=== PATIENT | female | born 1980 ===

== ENCOUNTER 2023-11-05 15:48 | Emergency (ER) | payer MEDICAID, OTHER, SELFPAY ==
--- NOTE | ~2023-11-05 | XR_ITS ---
EXAMINATION: XR CHEST CLINICAL INFORMATION: Pain COMPARISON: None available. TECHNIQUE: 2 views of the chest were obtained. FINDINGS: Lungs are well-inflated and clear. Trachea is midline in position. No interstitial disease, consolidation or mass. No pleural effusion or pneumothorax. Cardiac silhouette and pulmonary vessels are normal in size. The mediastinum and arjun have normal contour. The visualized bones and upper abdomen are unremarkable. XR/XR chest 2V IMPRESSION: Lungs have a normal appearance. No acute cardiopulmonary abnormality.
[2023-11-05 16:26] VITALS: BP 127/80; BP 140/79; PULSE 122; PULSE 128; RESP 20; TEMP 38.2; O2SAT 97; O2SAT 98; BMI 38.4
[2023-11-05 16:32] VITALS: BP 134/81; PULSE 122; PULSE 124; RESP 22; TEMP 38.2; O2SAT 97
--- NOTE | 2023-11-05 16:41 | ED.GENADULT ---
HPI - General Adult General Chief complaint: Upper Respiratory Symptoms Stated complaint: FEVER,COUGH,N/V,SOB Time Seen by Provider: 11/05/23 16:40 Source: patient, RN notes reviewed and old records reviewed Mode of arrival: ambulatory Limitations: no limitations History of Present Illness HPI narrative: 43-year-old female with past medical history significant for hypertension presents for evaluation of flu-like symptoms. patient reports fevers, body aches, cough, nausea, vomiting she reports that she has been sick since September 19 when she was diagnosed with COVID over a month ago patient states that she was also seen on October 16 for similar symptoms and was diagnosed with an asthma exacerbation. She reports she was discharged with cough medicine and prednisone she states that her symptoms never really improved patient denies any abdominal pain she is febrile on arrival to the ED that 100.8 and tachycardic to about 120 which is regular rhythm denies any leg swelling She takes lisinopril for high blood pressure but has not had any recent medication changes Related Data Previous Rx's Medication Instructions Recorded benzonatate 200 mg capsule 200 mg PO TID PRN cough #20 caps 11/05/23 Allergies Allergy/AdvReac Type Severity Reaction Status Date / Time No Known Allergies Allergy Verified 11/05/23 16:35 Review of Systems Constitutional: Constitutional: Reports body ache(s), Reports chills, Reports fever(s), Reports headache(s) and Reports malaise ENT: Reports headache(s) Cardiovascular: Cardiovascular: Reports dyspnea Respiratory: Respiratory: Reports cough and Reports dyspnea Gastrointestinal: Gastrointestinal: Denies abdominal pain, Reports nausea and Reports vomiting Musculoskeletal: Musculoskeletal: Reports back pain and Reports myalgias Integumentary/Breasts: Skin/Breast: Denies rash Neurologic: Reports headache(s) [facility] Social History Social History Smoked in Last 30 Days: No Use of substances other than those prescribed or required for medical reasons: No Advance Directives: No Advance Directives Information Provided: No Physical Exam ED Vital Signs: Vital Signs - 24 hr 11/05/23 16:26 11/05/23 16:32 11/05/23 16:32 Temperature 100.8 F H 100.8 F H Pulse Rate 128 H 122 H Respiratory Rate 20 22 H Blood Pressure 140/79 H 134/81 Pulse Oximetry 98 97 97 Oxygen Delivery Method Room Air Room Air Room Air BMI result Body Mass Index 38.4 Const General: healthy appearing, comfortable, no acute distress, alert and awake Nutritional Appearance: well nourished Orientation/consciousness: patient oriented x3 HENMT Head: Yes normocephalic and Yes atraumatic Eyes Eyelids: Yes eyelids normal Conjunctivae: conjunctivae normal Sclerae: sclerae normal Corneas: corneas normal Pupils: Equal, round and reactive pupils present EOM: EOMs intact bilaterally Neck Neck: Yes full ROM Resp Effort & Inspection: normal respiratory effort, able to speak in complete sentences, no audible wheezes and not labored Auscultation: clear to auscultation bilaterally Cardio Rate: tachycardic Rhythm: regular rhythm Skin General skin exam: elasticity normal Neuro General: patient oriented x3 Cranial nerves: Yes Equal, round and reactive pupils present and Yes Bilaterally intact EOM present Cognition (Neuro): normal cognition Extrem Other: Moving all extremities well without any obvious deformities Medications Administered Discontinued Medications Generic Name Dose Route Start Last Admin Trade Name Freq PRN Reason Stop Dose Admin Acetaminophen 975 mg 11/05/23 16:41 11/05/23 17:04 Acetaminophen 325 Mg Tablet PO 11/05/23 16:42 975 mg ONCE ONE Administration Sodium Chloride 1,000 mls @ 999 mls/hr 11/05/23 16:45 11/05/23 18:39 Ns IV 11/05/23 17:45 Infused .Q1H1M TASHI Infusion Ketorolac Tromethamine 30 mg 11/05/23 16:41 11/05/23 17:04 Ketorolac Tromethamine 30 Mg/Ml Vial IVPUSH 11/05/23 16:42 30 mg ONCE ONE Administration Medical Decision Making Medical Decision Making [facility] Narrative: 43-year-old female presents for evaluation of flu-like symptoms. Her symptoms may be related to influenza or COVID-19, however she reports being sick for over a month. Will get labs, blood cultures and a chest x-ray to rule out pneumonia. Patient will be given IV fluids, Tylenol and Toradol for fever and body aches. Further workup as indicated Differential Diagnosis Differential Diagnoses: The differential diagnosis associated with the presentation includes influenza influenza Sepsis Bronchitis Asthma exacerbation Lab Data 11/05/23 17:35 11/05/23 17:35 Labs: Lab Results 11/05/23 Range/Units 17:35 WBC 10.7 (4.8-10.8) X10*3/uL RBC 4.13 L (4.20-5.50) X10*6/uL Hgb 12.2 (12.0-16.0) g/dl Hct 36.4 L (37.0-47.0) % MCV 88.1 (80.0-98.0) fL MCH 29.5 (27.0-33.0) pg MCHC 33.5 (31.0-35.0) g/dl RDW 13.9 (11.0-16.0) % Plt Count 366 (160-400) X10*3/uL MPV 9.9 (9.4-12.3) fL Immature Gran % (Auto) 0.3 (0.0-0.4) % Neut % (Auto) 88.2 H (45-73) % Lymph % (Auto) 6.1 L (20-40) % Davidson % (Auto) 4.3 (2-11) % Eos % (Auto) 0.6 (0-4) % Baso % (Auto) 0.5 (0-2) % Lymph # (Auto) 0.7 L (1.2-4.9) X10*3/uL Davidson # (Auto) 0.5 (0.1-1.2) X10*3/uL Eos # (Auto) 0.1 (0.0-0.4) X10*3/uL Baso # (Auto) 0.1 (0.0-0.2) X10*3/uL Abs Immat Gran (auto) 0.03 (0.00-0.03) X10*3/uL Absolute Neuts (auto) 9.5 H (2.0-8.3) x10*3/uL Absolute Nucleated RBC 0.000 (0.0-0.012) X10*3/uL Nucleated RBC % (auto) 0.0 (0.0-0.2) /100WBC Sodium 140 (135-145) mmol/L Potassium 3.9 (3.3-5.1) mmol/L Chloride 108 (96-108) mmol/L Carbon Dioxide 23 (22-29) mmol/L Anion Gap 13 (12-20) BUN 10 (9-16) mg/dL Creatinine 0.81 (0.5-1.4) mg/dL Estim Creat Clear Calc 94.4 Estimated GFR > 60 Random Glucose 97 (60-115) mg/dL Lactic Acid 0.8 (0.5-2.0) mmol/L Calcium 8.9 (8.4-10.2) mg/dL Total Bilirubin 0.4 (0.0-1.0) mg/dL AST 15 (5-31) U/L ALT 13 (0-31) U/L Alkaline Phosphatase 101 (39-117) U/L Total Protein 7.1 (6.5-8.0) g/dL Albumin 4.0 (3.5-5.0) g/dL Lipase 17 (8-78) U/L COVID-19 ([place]) Negative (Negative) COVID-19 Clin Com See Note Influenza Type A ([place]) Positive A (Negative) Influenza Type B ([place]) Negative (Negative) Influenza A & B Note See Note Discharge Plan Discharge Clinical Impression: Acute dyspnea, Influenza Patient Disposition: Home, Self-Care Instructions: Influenza (ED) Additional Instructions: You tested positive for the flu Take Motrin/Tylenol for fevers and body aches Use Tessalon Perles as needed for coughing Follow-up with your primary doctor Prescriptions: New benzonatate 200 mg capsule 200 mg PO TID PRN (Reason: cough) Qty: 20 0RF Stand Alone Forms: Work/School Release
--- NOTE | 2023-11-05 16:42 | ECG_ITS ---
Test Reason : DIFFICULTY BREATHING Blood Pressure : / mmHG Vent. Rate : 112 BPM Atrial Rate : 112 BPM P-R Int : 152 ms QRS Dur : 080 ms QT Int : 328 ms P-R-T Axes : 046 015 022 degrees QTc Int : 447 ms Sinus tachycardia Otherwise normal ECG No previous ECGs available Referred By: Quinton Flores Electronically Signed By:PIO KAYE
[2023-11-05] MEDS: Ketorolac Tromethamine 30 MG/ML VIAL IVPUSH (17:04)
[2023-11-05] MEDS: Acetaminophen 325 MG TABLET 975 MG PO (17:04)
[2023-11-05] MEDS: 0.9 % Sodium Chloride 1,000 ML 999 ML IV (17:08)
[2023-11-05 18:01] LABS: MANUAL DIFF FLAG NO
[2023-11-05 18:05] LABS: COVID-19 Test Negative (Negative); IDNOW Serial# 08D9AD1C; IDNOW Serial# 152EDE1D; Influenza A Positive (Negative); Influenza B2 Negative (Negative)
[2023-11-05 18:08] LABS: Basophils Absolute Auto 0.1 X10*3/uL (0.0-0.2); Basophils Percent Auto 0.5 % (0-2); Eosinophils Absolute Auto 0.1 X10*3/uL (0.0-0.4); Eosinophils Percent Auto 0.6 % (0-4); Hematocrit 36.4 % (37.0-47.0); Hemoglobin 12.2 g/dl (12.0-16.0); Imm Gran Abs Auto 0.03 X10*3/uL (0.00-0.03); Imm Gran Pct Auto 0.3 % (0.0-0.4); Lymphocytes Absolute Auto 0.7 X10*3/uL (1.2-4.9); Lymphocytes Percent Auto 6.1 % (20-40); Mean Corpuscular HGB Conc 33.5 g/dl (31.0-35.0); Mean Corpuscular Hemoglobin 29.5 pg (27.0-33.0); Mean Corpuscular Volume 88.1 fL (80.0-98.0); Mean Platelet Volume 9.9 fL (9.4-12.3); Monocytes Absolute Auto 0.5 X10*3/uL (0.1-1.2); Monocytes Percent Auto 4.3 % (2-11); Neutrophils Absolute Auto 9.5 x10*3/uL (2.0-8.3); Neutrophils Percent Auto 88.2 % (45-73); Platelet Count 366 X10*3/uL (160-400); Red Blood Count 4.13 X10*6/uL (4.20-5.50); Red Cell Distribution Width 13.9 % (11.0-16.0); White Blood Count 10.7 X10*3/uL (4.8-10.8)
[2023-11-05 18:16] LABS: Lactic Acid 0.8 mmol/L (0.5-2.0)
[2023-11-05 18:21] LABS: Alanine Aminotransferase 13 U/L (0-31); Alkaline Phosphatase 101 U/L (39-117); Anion Gap 13 (12-20); Aspartate Amino Transferase 15 U/L (5-31); Bilirubin Total 0.4 mg/dL (0.0-1.0); Blood Urea Nitrogen 10 mg/dL (9-16); Calcium 8.9 mg/dL (8.4-10.2); Carbon Dioxide 23 mmol/L (22-29); Chloride 108 mmol/L (96-108); Creatinine Clr Calc Pharmacy 94.4; Estimated Glomerular Filt Rate > 60; Glucose Random 97 mg/dL (60-115); Lipase 17 U/L (8-78); Potassium 3.9 mmol/L (3.3-5.1); Sodium 140 mmol/L (135-145); Total Protein 7.1 g/dL (6.5-8.0)
[2023-11-05 18:44] VITALS: BP 127/79; PULSE 120; RESP 18; TEMP 38; O2SAT 97
== END 2023-11-05 18:55 | disposition home or self-care (01) ==
PROVIDERS: Physician Assistant; Emergency Provider Internal Medicine
DX: J10.1 Influenza due to other identified influenza virus with other respiratory manifestations (principal); R50.9 Fever, unspecified; R11.2 Nausea with vomiting, unspecified; R05.9 Cough, unspecified; R06.02 Shortness of breath; Z11.52 Encounter for screening for COVID-19; Z79.899 Other long term (current) drug therapy
CPT/HCPCS: 71046; 80053; 83605; 83690; 85025; 87040; 87502; 87635; 93005; 96361; 96374; 99284; 99285; J1885

== ENCOUNTER → 2023-11-05 16:42 | Outpatient (BNV) | payer MEDICAID, SELFPAY | PROVIDERS: Emergency Provider Internal Medicine; Visit Provider Internal Medicine | DX: R00.0 Tachycardia, unspecified (principal); R06.00 Dyspnea, unspecified | CPT/HCPCS: 93010 ==

== ENCOUNTER 2025-08-19 15:08 | Emergency (ER) | payer OTHER, SELFPAY ==
--- OUTSIDE RECORDS SUMMARY | 2024-12-11 06:00 | XMS_ITS ---
Author Organization [facility] Address [address] [place] [address] Care Team Providers Care Dispatcher Maintenance Service Name Role Phone MARIANELA LOMELI Unavailable [phone] REASON FOR VISIT Annual Exam Social History Sex Assigned At : Social History Observation Description Sex Assigned At Female Encounters Encounter Location Date Provider Diagnosis [facility] [address] [place] [address] [phone] 12/11/2024 MARIANELA LOMELI Plan Of Treatment No Information Progress Notes * Negar RAMOSDOB:1980 (45 yo F)Acc No.[id number]:12/11/2024 Progress Notes Patient: Negar Lan Provider: Ashutosh LOMELI :1980 A ge:44 Y S ex:Female Date:12/11/2024 Address:[address] [place] [address] NAOMI CRAWFORD [id number] Subjective: * Chief Complaints: * A nnual Exam * Electronic signature of SUNI LOMELI CNM on 08/20/2025 at 05:09 AM EST Sign off status: Pending * Provider: Ashutosh LOMELI Date: 0 12/11/2024 Generated for Carol veliz/Jatin/Stepan on: 1 10/20/2024 05:09 AM EST
--- NOTE | ~2025-08-19 | CT_ITS ---
CLINICAL HISTORY: LLQ tender, CT abdomen and pelvis with contrast Comparison: None provided Findings: The lung bases are clear. Elevated right hemidiaphragm. The gallbladder is unremarkable. No biliary ductal dilatation. The liver, spleen, pancreas, adrenal glands and kidneys are unremarkable. No ureteral stones and no hydronephrosis or hydroureter. No perinephric stranding. No bowel obstruction, pneumoperitoneum, or pneumatosis. Colonic diverticulosis with focal significant wall thickening and significant adjacent inflammatory stranding involving sigmoid colon proximally, consistent with acute diverticulitis. No perforation and no evidence of an abscess. No free fluid. Pelvic contents unremarkable. Normal appendix. Abdominal aorta normal in size. No acute fracture. IMPRESSION: 1. Acute diverticulitis involving sigmoid colon with no evidence of perforation or an abscess. After resolution of acute phase follow-up colonoscopies recommended to ensure no underlying mass. This document has been electronically signed by: Jacquelin Cherry MD on 08/19/2025 19:07:39
--- OUTSIDE RECORDS SUMMARY | 2025-08-19 14:00 | XMS_ITS | Encounter Summary ---
Author Organization [employer] Address [address] [place] [address] Care Team Providers Care Flavorings Compounder Name Role Phone Karen Schmidt MD Primary Care Provider [phone] Encounter Details Date Type Department Care Team ([facility] st Contact Info) Description 08/19/2025 2:00 PM EST Office Visit [facility] [address] [place] [address] [phone] Keisha Quintanilla MD [address] [place], [place] [phone] Acute abdominal pain (Primary Dx) Social History Tobacco Use Types Packs/Day Years Used Date Smoking Tobacco: Never Passive Smoke Exposure: Never Smokeless Tobacco: Never Alcohol Use Standard Drinks/Week Comments Never 0 (1 standard drink = 0.6 oz pur e alcohol) Depression Answer Date Recorded Patient Health Questionnaire-9 Score 9 12/25/2022 Depression Answer Date Recorded Patient Health Questionnaire-2 Score 3 12/25/2022 Comments Unknown Sex and Gender Information Value Date Recorded Sex Assigned at Female 11/21/2022 1:38 PM EST Legal Sex Female 1:34 PM EST Gender Identity Female 11/21/2022 1:38 PM EST Sexual Orientation Straight 11/21/2022 1: 38 PM EST documented as of this encounter Last Filed Vital Signs Vital Sign Reading Time Taken Comments Blood Pressure 149/92 08/19/2025 2:17 PM EST Pulse 106 08/19/2025 2:17 PM EST Temperature 34.6 C (94.2 F) 08/19/2025 2:17 PM EST Respiratory Rate 18 08/19/2025 2:17 PM EST Oxygen Saturation 96% 08/19/2025 2:17 PM EST Inhaled Oxygen Concentration - - Weight 85.5 kg (188 lb 9.6 oz) 08/19/2025 2:17 P M EST Height 157.5 cm (5' 2 ) 08/19/2025 2:17 PM EST Body Mass Index 34.5 08/19/2025 2:17 PM EST documented in this encounter Progress Notes * Keisha Logan MD - 08/19/2025 2:00 PM EST SUBJECTIVE: Negar Ramos is a 45 y.o. year old female who presents for acute visit . Negar Ramos, 45 years Acute Abdominal Pain and Suspected Diverticulitis - Severe abdominal pain onset yesterday morning, progressively worsening - Pain initially localized, then spread across the abdomen - Stomach swelling reported - Pain described as the worst ever experienced, unable to sleep, unable to walk straight - Pain occurs every 10 minutes, very strong - Pain not relieved by Advil - Denies fever, denies burning or pain with urination, denies constipation - Able to have a bowel movement today, but with abdominal pain and fear due to pain - Nausea and vomiting reported, dizziness present - History of diverticulitis, last episode 4 years ago, treated with antibiotics, hospitalization required - Fiber intake mentioned due to diverticulitis history Social History Social History Narrative Not on file Problem List[1] Family History[2] Review of Systems OBJECTIVE: Vitals: 08/19/25 1417 BP: (!) 149/92 BP Location: Right arm Patient Position: Sitting BP Cuff Size: Adult Pulse: 106 Resp: 18 Temp: 94.2 ??F (34.6 ??C) TempSrc: Temporal SpO2: 96% Weight: 188 lb 9.6 oz (85.5 kg) Height: 5' 2 (1.575 m) Physical Exam Constitutional: General: She is in acute distress. Cardiovascular: Rate and Rhythm: Normal rate and regular rhythm. Pulmonary: Effort: Pulmonary effort is normal. Breath sounds: Normal breath sounds. Abdominal: General: Bowel sounds are normal. There is distension. Tenderness: There is generalized abdominal tenderness. There is guarding. Neurological: Mental Status: She is alert. Follow Up: No follow-ups on file. Medications Ordered Prior to Encounter[3] Problem List Items Addressed This Visit Acute abdominal pain - Primary Acute abdominal pain and suspected diverticulitis: - Severe abdominal pain consistent with prior episodes of diverticulitis. Pain intensity and physical findings suggest a severe episode requiring higher level of care. Oral antibiotics not appropriate due to severity. - Referred to hospital for further evaluation and management. Recommendation for hospital-based care including CT imaging, intravenous pain management, intravenous antibiotics, and intravenous fluids. Presented case to hospital provider and coordinated transfer. Patient declines transportation by ambulance. This note was drafted using Ambient (AI) technology. The patient/patient's guardian has been informed and has consented to the use of this technology: Yes [1] Patient Active Problem List Diagnosis Nexplanon in place Essential hypertension Class 2 severe obesity due to excess calories with serious comorbidity and body mass index (BMI) of37.0 to 37.9 in adult Acute abdominal pain [2] No family history on file. [3] Current Outpatient Medications on File Prior to Visit Medication Sig Dispense Refill albuterol (Ventolin HFA) 108 (90 Base) MCG/ACT inhaler Inhale 2 puffs every 6 (six) hours if neededfor wheezing. 18 g 0 Blood Pressure kit Use as directed to check blood pressure twice a day 1 kit 0 losartan (Cozaar) 25 MG tablet Take 1 tablet (25 mg) by mouth Once per day. 30 tablet 11 [DISCONTINUED] acetaminophen (Tylenol Extra Strength) 500 MG tablet Take 1 tablet (500 mg) by mouthevery 6 (six) hours if needed for mild pain, fever, headaches or moderate pain. 30 tablet 0 [DISCONTINUED] hydrOXYzine pamoate (Vistaril) 50 MG capsule TAKE 1 CAPSULE BY MOUTH EVERY 6 HOURS NEEDED FOR ANXIETY 90 capsule 1 [DISCONTINUED] lisinopril (Prinivil) 20 MG tablet Take 1 tablet (20 mg) by mouth in the morning. 90tablet 1 [DISCONTINUED] predniSONE (Deltasone) 20 MG tablet 40 mg once a day x 5 days 10 tablet 0 [DISCONTINUED] sertraline (Zoloft) 50 MG tablet Take 1 tablet (50 mg) by mouth at bedtime. 90 tablet 1 [DISCONTINUED] sodium chloride ([place] Nasal [place]) 0.65 % nasal spray 1-2 sprays on each nostril every 2-3 hours as needed for nasal congestion 30 mL 1 [DISCONTINUED] Ventolin HFA 108 (90 Base) MCG/ACT inhaler INHALE 2 PUFFS BY MOUTH EVERY 6 HOURS NEEDED FOR WHEEZING 18 g 0 No current facility-administered medications on file prior to visit. documented in this encounter Plan of Treatment Upcoming Encounters Date Type Department Care Team (Late st Contact Info) Description 09/21/2025 9:15 AM EST Office Visit [facility] [address] [place] [address] Karen Schmidt MD [address] [place] [address] documented as of this encounter Visit Diagnoses Diagnosis Acute abdominal pain- Primary Abdominal pain, unspecified site documented in this encounter Additional Health Concerns Assessment Noted Time PHQ-9 Depression Total Score: 9 12/26/19 23 2:06 PM EDT documented as of this encounter Care Teams Flavorings Compounder Relationship Specialty Start Date End Date Karen Schmidt MD [address] [place] [phone] PCP - General Family Medicine 01/18/23 documented as of this encounter
[2025-08-19 15:19] VITALS: BP 132/75; PULSE 98; RESP 20; TEMP 36.9; O2SAT 99; BMI 34.6
--- NOTE | 2025-08-19 15:19 | ED_ITS ---
HPI - Abdominal Pain General Chief Complaint: Abdominal Pain Stated Complaint: Stomach Pain Time Seen by Provider: 08/19/25 17:16 History of Present Illness ED Provider: Juan Clark MD HPI narrative: Author / Clinician: Juan Clark MD Chief Complaint Severe abdominal pain and abdominal swelling since yesterday morning. History of Present Illness The patient is a female with a history of diverticulitis (last episode 2020) who presents to the ED for evaluation of severe abdominal pain that began yesterday morning. She initially thought the discomfort was related to her menstrual period, but the pain has since intensified and she now reports a sensation of abdominal swelling. She describes associated nausea but denies vomiting, diarrhea, hematochezia, dysuria, flank pain, or fevers. She reports the pain is severe and feels very swollen. The pain location was described as cheek and the root, though this was not clarified further in the conversation. No prior surgeries or complications related to diverticulitis. She underwent a colonoscopy shortly after her 2020 episode, which was reportedly normal. Past medical history is notable for hypertension, for which she started medication last . Review of Systems - Constitutional: No fevers reported. - Gastrointestinal: Positive for severe abdominal pain and nausea. Denies diarrhea or blood in stool. - Genitourinary: Denies dysuria or flank pain. Past Medical History - Diverticulitis (episode in 2020) - Hypertension (on medication started last week) Emergency Department Course Discussed plan with patient to obtain abdominal imaging (CT abdomen/pelvis) to evaluate for possible recurrent diverticulitis. Pain control requested by the patient; plan to administer pain medication. Patient verbalized understanding of the plan. Assessment & Plan Diagnosis: Abdominal pain, rule out recurrent diverticulitis. Plan: - CT abdomen/pelvis to assess for diverticulitis or other intra-abdominal pathology. - Pain management as requested by patient. Related Data Previous Rx's ?Medication ?Instructions ?Recorded benzonatate 200 mg capsule 200 mg PO TID PRN cough #20 caps 11/05/23 amoxicillin 875 mg-potassium 1 tab PO BID 7 days #14 t abs 08/19/25 clavulanate 125 mg tablet morphine 15 mg immediate release 15 mg PO BID PRN pain #7 tabs 08/19/25 tablet ondansetron 4 mg disintegrating 4 mg PO Q8H PRN nausea and 08/19/25 tablet vomiting #7 tabs Allergies Allergy/AdvReac Type Severity Reaction Status Date / Time No Known Allergies Allergy Verified 08/19/25 15:23 PENDING SALE TO [facility] Social History Social History Smoked in Last 30 Days: No Use of substances other than those prescribed or required for medical reasons: No Advance Directives: No Advance Directives Information Provided: No Patient : No Physical Exam ED Exam Exam: EXAM: Gen: Alert, awake, well appearing, well hydrated. Head: Atraumatic Eyes: Anicteric, Normal conjunctiva. ENT: Moist mucosa, no pallor. ? Neck: Supple. Skin: ?No observable rash or bruising on exposed or examined skin Respiratory: Breathing comfortably, No distress.Clear to auscultation bilaterally, symmetric chest expansion, No wheeze, rales, ronchi. Cardiovascular: Regular rate and rhythm. No murmurs or rub. Well perfused periphery, warm extremities. No edema. ? Abdominal: Moderate tenderness across the lower abdomen particularly in the left lower quadrant no masses. Soft, no objective distension. No palpable masses or obvious organomegaly. ?No guarding, no rebound tenderness or other peritoneal findings. : No flank tenderness. Neuro: Alert. Gross movement of all extremities intact. ? Psych: Calm. Cooperative. MSK: No grossly visible deformity. Vital signs: See flowsheet Vital Signs: Vital Signs - 24 hr 08/19/25 15:19 08/19/25 17:45 Temperature 98.5 F 98.3 F Pulse Rate 98 101 H Respiratory Rate 20 16 Blood Pressure 132/75 115/68 Pulse Oximetry 99 100 Oxygen Delivery Method Room Air Room Air BMI result Body Mass Index 34.6 Course Course Course Narrative: This is a Rapid Medical Exam performed in triage by Amy De Leon PA-C. Full HPI, ROS and PE to be performed by primary ED provider. 45-year-old female w/pmhx diverticulitis presenting to the ED c/o lower abdominal pain x yesterday AM. +nausea. denies D/C, fever, vaginal d/c or bleeding PE: uncomfortable, abdomen soft w/diffuse ttp, no rebound or guarding Plan: labs, UA Medical Decision Making Medical Decision Making MDM Narrative: Medical Decision Makin-year-old female with a history of diverticulitis with left lower quadrant lower no fever. No dysuria or flank pain or tenderness lower quadrant this is consistent with her previous episode of diverticulitis likely a recurrence we will get CT to evaluate for perforation abscess or other complication. Pain control IV fluids antibiotics Preliminary Favored Differential Diagnosis: [ ] among additional considered etiologies Testing Interpreted Independently: ?See below for details Radiology or Lab testing Results Reviewed: ?See below for details Consults: ?See below for details Independent Historians/External Chart Reviews: ?See below for details Social Determinants of Health Impacting MDM/Planning: ?See below for details Lab Data 08/19/25 16:37 08/19/25 16:37 Labs: Lab Results 08/19/25 08/19/25 08/19/25 Range/Units 16:37 17:28 17:44 WBC 19.5 H (4.8-10.8) X10*3/uL RBC 4.29 (4.20-5.50) X10*6/uL Hgb 12.9 (12.0-16.0) g/dl Hct 39.6 (37.0-47.0) % MCV 92.3 (80.0-98.0) fL MCH 30.1 (27.0-33.0) pg MCHC 32.6 (31.0-35.0) g/dl RDW 14.2 (11.0-16.0) % Plt Count 383 (160-400) X10*3/uL MPV 9.3 L (9.4-12.3) fL Immature Gran % (Auto) 0.6 H (0.0-0.4) % Neut % (Auto) 75.0 H (45-73) % Lymph % (Auto) 17.6 L (20-40) % Kemper % (Auto) 5.8 (2-11) % Eos % (Auto) 0.7 (0-4) % Baso % (Auto) 0.3 (0-2) % Lymph # (Auto) 3.4 (1.2-4.9) X10*3/uL Kemper # (Auto) 1.1 (0.1-1.2) X10*3/uL Eos # (Auto) 0.1 (0.0-0.4) X10*3/uL Baso # (Auto) 0.1 (0.0-0.2) X10*3/uL Abs Immat Gran (auto) 0.11 H (0.00-0.03) X10*3/uL Absolute Neuts (auto) 14.6 H (2.0-8.3) x10*3/uL Absolute Nucleated RBC 0.000 (0.0-0.012) X10*3/uL Nucleated RBC % (auto) 0.0 (0.0-0.2) /100WBC Sodium 139 (135-145) mmol/L Potassium 4.0 (3.3-5.1) mmol/L Chloride 106 (96-108) mmol/L Carbon Dioxide 26 (22-29) mmol/L Anion Gap 11 L (12-20) BUN 13 (9-16) mg/dL Creatinine 0.86 (0.5-1.4) mg/dL Estim Creat Clear Calc 82.1 Estimated GFR > 60 Random Glucose 105 (60-115) mg/dL Lactic Acid 0.7 (0.5-2.0) mmol/L Calcium 9.1 (8.4-10.2) mg/dL Magnesium 2.3 (1.6-2.6) mg/dL Total Bilirubin 0.6 (0.0-1.0) mg/dL Direct Bilirubin 0.2 (0.0-0.5) mg/dL AST 19 (5-31) U/L ALT 14 (0-31) U/L Alkaline Phosphatase 115 (39-117) U/L Total Protein 7.1 (6.5-8.0) g/dL Albumin 4.2 (3.5-5.0) g/dL Lipase 22 (8-78) U/L Beta HCG, Quant < 2 mIU/mL Urine Color Yellow Urine Appearance Hazy Urine pH 6.5 (5.0-9.0) Ur Specific [place] 1.015 (1.005-1.025) Urine Protein 30 (1+) H (Neg-Trace) mg/dL Urine Glucose (UA) Negative (Negative) mg/dL Urine Ketones 15 (Negative) mg/dL Urine Blood Large (3+) H (Negative) Urine Nitrite Negative (Negative) Ur Leukocyte Esterase Trace H (Negative) Urine RBC >20 H (0-2) /HPF Urine WBC 11-20 H (0-5) /HPF Ur Squamous Epith Cells 6-10 (0-2) /HPF Urine Bacteria 1+ (None Seen) Hyaline Casts 0-2 (0-2) /LPF Medications Administered Discontinued Medications Generic Name Dose Route Start Last Admin Trade Name Aretha PRINCE Reason Stop Dose Admin Acetaminophen 975 mg 08/19/25 19:12 08/19/25 19:24 Acetaminophen 325 Mg Tablet PO 08/19/25 19:13 975 mg ONCE ONE Administration Ceftriaxone Sodium 2 gm/ 50 mls @ 100 mls/hr 08/19/25 18:07 08/19/25 19:16 Sodium Chloride IV 08/19/25 18:36 Infused ONCE ONE Infusion Metronidazole 500 mg in 100 mls @ 100 mls/hr 08/19/25 18:07 08/19/25 19:16 Flagyl IV 08/19/25 19:06 Not Given ONCE ONE Sodium Chloride 1,000 mls @ 999 mls/hr 08/19/25 18:15 08/19/25 19:41 Ns IV 08/19/25 19:15 Infused .Q1H1M TASHI Infusion Iohexol 100 ml 08/19/25 18:31 08/19/25 18:31 Iohexol 350 Mg/Ml 100 Ml Infus..Btl IV 08/19/25 18:32 85 ml ONCE ONE Administration Morphine Sulfate 15 mg 08/19/25 19:12 08/19/25 19:24 Morphine Sulfate Immed Release 15 Mg Tablet PO 08/19/25 19:13 15 mg ONCE ONE Administration Discharge Plan Discharge Clinical Impression: Diverticulitis Patient Disposition: Home, Self-Care Instructions: Diverticulitis (DC) Additional Instructions: _ DISCHARGE DIAGNOSES: Abdominal pain identified as diverticulitis without complication on CT scan HISTORY OF PRESENTATION: ?Abdominal pain EMERGENCY DEPARTMENT COURSE,TESTS, TREATMENTS: While in the ED today you had a CT scan showing diverticulitis without complication we given intravenous antibiotics DISCHARGE MEDICATIONS: ?[We have made no changes to your regular medication regimen] we are sending you home on oral antibiotics please take as prescribed FOLLOW-UP: ?Call your primary or general physician soon as possible to discuss your symptoms, your ED visit and to discuss follow up plans Call your primary doctor to be seen within 2-3 days INSTRUCTIONS ?& RETURN PRECAUTIONS: If any symptoms change first call your primary physician, if it is after-hours your primary doctors office should have a provider extension service agent you can speak with. If the symptoms are severe or very concerning to you then call 911 or return to the ED. Return for severe worsening pain rectal bleeding or other significant complications or symptoms as we discussed Juan Clark MD Emergency Physician [facility] Prescriptions: New morphine 15 mg tablet 15 mg PO BID PRN (Reason: pain) Qty: 7 0RF Rx Instructions: Partial Fill upon patient request. amoxicillin-pot clavulanate 875-125 mg tablet 1 tab PO BID 7 Days Qty: 14 0RF ondansetron 4 mg tablet,disintegrating 4 mg PO Q8H PRN (Reason: nausea and vomiting) Qty: 7 0RF No Action benzonatate 200 mg capsule 200 mg PO TID PRN (Reason: cough) Qty: 20 0RF Stand Alone Forms: Work/School Release Interventions: ED Discharge Assessment Last Done: 08/19/25 19:28 Discharge Date/Time: 08/19/25 19:41 Print Language: Portuguese
[2025-08-19 16:49] LABS: MANUAL DIFF FLAG NO
[2025-08-19 16:52] LABS: Hematocrit 39.6 % (37.0-47.0); Hemoglobin 12.9 g/dl (12.0-16.0); Imm Gran Abs Auto 0.11 X10*3/uL (0.00-0.03); Imm Gran Pct Auto 0.6 % (0.0-0.4); Lymphocytes Absolute Auto 3.4 X10*3/uL (1.2-4.9); Mean Corpuscular HGB Conc 32.6 g/dl (31.0-35.0); Mean Corpuscular Hemoglobin 30.1 pg (27.0-33.0); Mean Corpuscular Volume 92.3 fL (80.0-98.0); NRBC Abs Auto 0.000 X10*3/uL (0.0-0.012); NRBC Pct Auto 0.0 /100WBC (0.0-0.2); Platelet Count 383 X10*3/uL (160-400); Red Blood Count 4.29 X10*6/uL (4.20-5.50); White Blood Count 19.5 X10*3/uL (4.8-10.8)
[2025-08-19 17:16] LABS: Alanine Aminotransferase 14 U/L (0-31); Albumin Level 4.2 g/dL (3.5-5.0); Alkaline Phosphatase 115 U/L (39-117); Anion Gap 11 (12-20); Aspartate Amino Transferase 19 U/L (5-31); Blood Urea Nitrogen 13 mg/dL (9-16); Calcium 9.1 mg/dL (8.4-10.2); Carbon Dioxide 26 mmol/L (22-29); Chloride 106 mmol/L (96-108); Creatinine Clr Calc Pharmacy 82.1; Estimated Glomerular Filt Rate > 60; Lipase 22 U/L (8-78); Magnesium 2.3 mg/dL (1.6-2.6); Potassium 4.0 mmol/L (3.3-5.1); Sodium 139 mmol/L (135-145); Total Protein 7.1 g/dL (6.5-8.0)
[2025-08-19 17:45] VITALS: BP 115/68; PULSE 101; RESP 16; TEMP 36.8; O2SAT 100
[2025-08-19 18:13] LABS: Appearance Urine Hazy; Glucose Urine UA Negative (Negative); PH 6.5 (5.0-9.0); Specific Gravity - Urine 1.015 (1.005-1.025); UMIC TRIGGER UACC YES
[2025-08-19 18:16] LABS: UACC Culture Trigger YES
--- NOTE | 2025-08-19 18:24 | PC.NURSE ---
Pt out of room for CT scan
[2025-08-19] MEDS: iohexoL 350 MG/ML 100 ML INFUS..BTL IV (18:31)
[2025-08-19 19:15] VITALS: BP 129/82; PULSE 101; RESP 18; O2SAT 98
--- NOTE | 2025-08-19 19:16 | PC.NURSE ---
provider Dr Barakat confirms cancel Flagyl. Pt being d/c.
[2025-08-19] MEDS: Morphine Sulfate Immed Release 15 MG TABLET PO (19:24)
[2025-08-19 19:28] VITALS: BP 129/82; PULSE 101; RESP 18; TEMP 36.8; O2SAT 98
--- NOTE | 2025-08-19 19:28 | PC.NURSE ---
pt medicated per MAR, IV removed, d/c paper given.
--- OUTSIDE RECORDS SUMMARY | 2025-08-20 05:09 | XMS_ITS | Encounter Summary ---
Author Organization [employer] Address [address] [facility] [place] [address] Care Team Providers Care Tank Worker Name Role Phone Karen Schmidt MD Primary Care Provider Reason for Visit * Reason Onset Date Comments Nurse Triage 11/05/2023 Encounter Details Date Type Department Care Team ([facility] st Contact Info) Description 11/05/2023 Telephone [facility] [address] [place] [address] Karen Schmidt MD [address] [place] [address] Nurse Triage Social History Tobacco Use Types Packs/Day Years [...] PM EST documented as of this encounter Miscellaneous Notes * Telephone Encounter - Humaira Mata RN - 11/05/2023 12:01 PM EST Triage call Pt reports chronic cough at this point and body aches. Pt was seen in [facility] 10/16/23 with dx of cough variant asthma. Prednisone was prescribed at that time which Pt reports helped tremendously. Pt was prescribed an albuterol MDI which Pt is using twice daily. Pt denies fever but, audibly is coughing during this call with some audible wheezing. Pt has used prescribed benzonatate 200mg caps with some effect and only has 2 capsules left. Pt reports , I feel much worse . Pt has some shortness of breath. [place] [facility] [place]. Insurance is verified as active prior to booking. Pt agrees with disposition and home care reviewed. Protocol Used: Cough (Adult) Protocol-Based Disposition: See in Office or Video Visit Today or Tomorrow Video visit not offered Positive Triage Questions: * Continuous (nonstop) coughing interferes with work or school and no improvement using cough treatment per Care Advice * Patient wants to be seen * All higher-acuity triage questions were negative Care Advice Discussed: * Reassurance and Education - Cough * Cough Medicines * Coughing Spells * Prevent Dehydration * Reasons To Call Back - Difficulty breathing - Cough lasts more than 3 weeks - Fever lasts more than 3 days - You become worse * Telephone Encounter - Jada Mac - 11/05/2023 11:25 AM EST Symptoms: Cough, Body Aches Outcome: Schedule an urgent appointment (within 1 hour) or talk to a nurse or provider soon Reason: Wheezing (high-pitched whistling sound) The caller accepted this outcome documented in this encounter Plan of Treatment Upcoming Encounters Date Type Department Care Team (Late st Contact Info) Description 09/21/2025 9:15 AM EST Office Visit [facility] [address] [place] [address] Karen Schmidt MD [address] [place] [address] documented as of this encounter Visit Diagnoses Not on filedocumented in this encounter Additional Health Concerns Assessment Noted Time PHQ-9 Depression Total Score: 9 12/26/19 23 2:06 PM EDT documented as of this encounter Care Teams Tank Worker Relationship Specialty Start Date End Date Karen Schmidt MD [address] [place] [address] PCP - General Family Medicine 01/18/23 documented as of this encounter
--- OUTSIDE RECORDS SUMMARY | 2025-08-20 05:09 | XMS_ITS | Patient Health Record ---
Author Organization [facility] [employer] Address [address] [place] [address] Care Team Providers Care Brand Coordinator Name Role Phone MARIANELA LOMELI Unavailable [phone] Allergies No Known Allergies Results Component Value Reference Range Notes PDF Report Reviewed date:01/05/2025 12:01:13 PM Interpretation: Performing Lab:[facility] [place], [address], [address], [place], Phone - [phone], Director - [facility] Notes/Report: No. of containers..01 ThinPrep Vial Clinical Information:[id number] IGP, Apt HPV,rfx 16/18,45-19 9344 Reviewed date:01/05/2025 12:00:48 PM Interpretation:Normal, HPV negative Performing Lab:[facility] [place], [address], [address], [place], Phone - [phone], Director - [facility] Notes/Report: Clinical Information:[id number] No. of containers..01 ThinPrep Vial DIAGNOSIS: NEGATIVE FOR IN TRAEPITHELIAL LESION OR MALIGNANCY. Specimen adequacy: Satisfactory for evaluation. Endocervical and/or squamous metaplastic cells (endocervical component) are present. Clinician provided ICD10: Z01.419 Z11.51 Performed by: Quinton Lynn , Care Tech (ASCP) . . Note: The Pap smear is a screening test designed to aid in the detection of premalignant and malignant conditions of the uterine cervix. It is not a diagnostic procedure and should not be used as the sole means of detecting cervical cancer. Both false-positive and false-negative reports do occur. . Test Methodology: This liquid based ThinPrep(R) pap test was screened with the use of an image guided system. HPV Aptima Negative Negative This nucleic acid amplification test detects fourteen high-risk HPV types (16,18,31,33,35,39,45,51,52,56,58 ,59,66,68) without differentiation. Chlamydia/GC Amplification-1 10143 Reviewed date:01/05/2025 11:47:24 AM Interpretation:Negative Performing Lab:[facility] [place], [address], [address], [place], Phone - [phone], Director - [facility] Notes/Report: Chlamydia trachomatis, GLORIA Negative Negative Neisseria gonorrhoeae, GLORIA Negative Negative Reason For Referral No Information Medications Medication SIG (Take, Route, Frequency, Duration) Notes Start Date End Date Status Nexplanon Active Social History Sex Assigned At : Social History Observation Description Sex Assigned At Female Social History HIV Risk Assessment Social Info Question Answer Notes Additional Questions Is an HIV Risk Assessment being conducted? No Aware of costs Reproductive Life Plan: Social Info Question Answer Notes Reproductive Life Plan: Do you want to h manuel children? No Human Trafficking: Social Info Question Answer Notes Human Trafficking Experienced: No PrEP for HIV: Social Info Question Answer Notes PrEP for HIV Is the client interested in beginning/continuing PrEP for HIV? No Sexual History: Social Info Question Answer Notes Sexual History: Sexual History Reviewed: Partners, Practices, Protection/Past STIs, Prevention of Currently sexually active? Yes Sexually active with: Men Number of male partners 1 Your sexual activities include: vaginal intercourse Reviewed types of EC? Yes Have you/your partner(s) ever used EC? Yes Do you use condoms? No Date of last unprotected intercourse: 12/12/2024 Number of partners in past 3 months: 1 Number of partners in past year: 1 What is the client's primary method to prevent at the end of their visit? Hormone Implant (Nexplanon) Does your partner(s) currently have any STIs? No Counseling Provided: Social Info Question Answer Notes Counseling Provided Please indicate the length of time, in minutes, that counseling was provided. 10 Counseling Was Provided By: connor Drugs/Alcohol: Social Info Question Answer Notes Drug/Alcohol Use Do you or have you used drugs? No Per client Do you or have you used alcohol? Yes, in the pas t Per client Food Access: Social Info Question Answer Notes Food Access The Client's current access to food is Secure Food Access Relationships: Social Info Question Answer Notes Relationships Has the client experienced any of the following: Client has never experienced harmful relationships DO NOT USE - Travel Plans: Social Info Question Answer Notes Travel Plans DO NOT USE - Has cli ent traveled to any Zika affected areas? No DO NOT USE - Has partner traveled to any Zika af fected areas? No DO NOT USE - Is client planning to travel to any Zika affected areas? No DO NOT USE - Is partner planning to travel to an y Zika affected areas? No Housing Social Info Question Answer Notes Housing The client's current living situation is: stable housing Tobacco Use: Social Info Question Answer Notes Tobacco Use: Do you/have you used tobacco? No Tobacco Smoking Status Unknown if ever smoked Section Notes: Aptima Problems Problem Type SNOMED Code ICD Code Onset Dates Problem Status W/U Status Risk Notes Problem SI - Stress incontinence (68161964) Stress incontinence (female) (male) (N39.3) Active confirmed Vital Signs Blood pressure diastolic 84 mm Hg 12/31/2024 Cli ent was please with bp as it sometimes is high Height 5'2 in 12/31/2024 Client was plea se with bp as it sometimes is high Blood pressure systolic 136 mm Hg 12/31/2024 Clie nt was please with bp as it sometimes is high Weight 203.0 lbs 12/31/2024 Client was plea se with bp as it sometimes is high BMI 37.13 kg/m2 12/31/2024 Client was plea se with bp as it sometimes is high Encounters Encounter Location Date Provider Diagnosis [address] [id number] 12/31/2024 MARIANELA LOMELI Encounter for gynecological examination (general) (routine) without abnormal findings Z01.419 ; Encounter for screening for human papillomavirus (HPV) Z11.51 ; Chlamydia Screening Z11.3 ; Other problems related to lifestyle Z72.89 and Stress incontinence (female) (male) N39.3 Assessments Encounter Date Diagnosis (ICD Code) Assessment Notes Treatment Notes Treatment Clinical Notes Section Notes 12/31/2024 Encounter for gynecological examination (general) (routine) without abnormal findings (ICD-10 - Z01.419) Discussed routine screenings and self breast/chest awareness. Mammogram screening recommendations reviewed. Provided clt with mammogram referral to self schedule once insurance is reinstated. Pap guidelines reviewed and pap collected. Routine screening in 5 yrs if normal. Perimenopause/juanita pause anticipatory guidance reviewed- clt is experiencing symptoms that are suggestive of perimenopause. Reviewed options regarding current bleeding pattern and perimenopause symptoms. Can consider replacing Nexplanon or change to a different BCM. Also discussed CHC's if BP normal and/or progestin method and use of an estradiol patch. Clt to think about options and book a follow up if she would like 12/31/2024 Encounter for screening for human papillomavirus (HPV) (ICD-10 - Z11.51) 12/31/2024 Chlamydia Screening (ICD-10 - Z11.3) Discussed STI risks, screenings that are available through [facility] and safe sex. Clt aware of lab processing times and how to view results on portal and how positive results will be communicated 12/31/2024 Other problems related to lifestyle (ICD-10 - Z72.89) 12/31/2024 Stress incontinence (female) (male) (ICD-10 - N39.3) Pelvic floor exercises discussed and recommended. If clt not getting enough benefit from this then can do pelvic PT referral once insurance reinstated Plan Of Treatment No Information Insurance Providers Payer Name Payer Address Payer Phone Subscriber Number Group Number Insured Name Patient Relationship to Insured Coverage Start Date Coverage End Date [facility] - [id number] [address] [place] [address] [place] Fee Cat 5 Negar Ramos Self - patient is the insured Medications Administered Medication Instructions Date of Administration Dosage Notes Lidocaine 1% 11/29/2020 Medical (General) History Medical History History ICD Code abnormal Pap weight concerns possible HTN, has not been diagnosed Sexually transmitted infections PORTER's- no aura. Maybe related to eye strain. Improved with wearing eye glasses Surgical History Surgery Date(Month/Year) 2x abortions cyst removed from wrist 2017 Hospitalization History Reason Date(Month/Year) child
--- OUTSIDE RECORDS SUMMARY | 2025-08-20 05:09 | XMS_ITS | Encounter Summary ---
Author Organization [employer] Address [address] [place] [address] [address] [place] [address] Care Team Providers Care Passport Application Examiner Name Role Phone Karen Schmidt MD Primary Care Provider [phone] Encounter Details Date Type Department Care Team (Latest Contact Info) Description 08/19/2025 Travel Social History Tobacco Use Types Packs/Day Years [...] PM EST documented as of this encounter Plan of Treatment Upcoming Encounters Date Type Department Care Team (Late st Contact Info) Description 09/21/2025 9:15 AM EST Office Visit [facility] [address] [place] [address] Karen Schmidt MD [address] [place] [address] documented as of this encounter Visit Diagnoses Not on filedocumented in this encounter Additional Health Concerns Assessment Noted Time PHQ-9 Depression Total Score: 9 12/26/19 23 2:06 PM EDT documented as of this encounter Care Teams Passport Application Examiner Relationship Specialty Start Date End Date Karen Schmidt MD [address] [place] [address] PCP - General Family Medicine 01/18/23 documented as of this encounter
--- OUTSIDE RECORDS SUMMARY | 2025-08-20 05:09 | XMS_ITS | Encounter Summary ---
Author Organization [employer] Address [address] [facility] 7 [place] [address] Care Team Providers Care Wound Care Rn Name Role Phone Karen Schmidt MD Primary Care Provider [phone] Reason for Visit * Reason Onset Date Comments Nurse Triage 08/19/2025 Encounter Details Date Type Department Care Team ([facility] st Contact Info) Description 08/19/[address] [facility] [address] [place] [address] Karen Schmidt MD [address] [place] [address] Nurse Triage Social History Tobacco Use Types [...] encounter Miscellaneous Notes * Telephone Encounter - Barrett Ho RN - 08/19/2025 10:57 AM EST TC placed to patient. Patient reported moderate to severe lower abd pain with nausea, dizziness. headaches x 2 days. HX of Diverticulitis. Patient reported taking Advil for the pain and it will work for a little while then the pain returns. RN scheduled an appt in the [facility] 08/19/25 at 2 pm with a provider. RN advised if patient symptoms worsen prior to her appt at 2 pm to go to the ED for further evaluation. patient verbalized understanding. Protocol Used: Abdominal Pain - Female (Adult) Protocol-Based Disposition: See in Office or Video Visit Today Video visit not offered Positive Triage Questions: * Moderate pain (e.g., interferes with normal activities that comes and goes (cramps) lasts > 24hours (Exception: Pain with diarrhea or vomiting; see Diarrhea or Vomiting Protocol.) * Patient wants to be seen * All higher-acuity triage questions were negative. Care Advice Discussed: * Rest * Expected Course - Abdomen Pain * Reasons To Call Back - Severe pain lasts over 1 hour - Constant pain lasts over 2 hours - You become worse * Telephone Encounter - Santa Leroy - 08/19/2025 10:07 AM EST Symptom: Abdominal Pain - Female - Not Outcome: Schedule an urgent appointment (within 4 hours) or talk to a nurse or provider soon Reason: Getting worse The caller accepted this outcome. Contact pt at [phone] documented in this encounter Plan of Treatment Upcoming Encounters Date Type Department Care Team (Late st Contact Info) Description 09/21/2025 9:15 AM EST Office Visit [facility] [address] [place] [address] Karen Schmidt MD [address] [place] [address] documented as of this encounter Visit Diagnoses Not on filedocumented in this encounter Additional Health Concerns Assessment Noted Time PHQ-9 Depression Total Score: 9 12/26/19 23 2:06 PM EDT documented as of this encounter Care Teams Wound Care Rn Relationship Specialty Start Date End Date Karen Schmidt MD [address] [place] [address] PCP - General Family Medicine 01/18/23 documented as of this encounter
--- OUTSIDE RECORDS SUMMARY | 2025-08-20 05:09 | XMS_ITS | Clinical Summary ---
Author Organization [employer] Address [address] [facility] 7t [place] [address] Care Team Providers Care Imaging Account Manager Name Role Phone Karen Schmidt MD Primary Care Provider Allergies Active Allergy Reactions Criticality Noted Date Comments Lisinopril Cough High 08/13/2025 Medications * This document contains information received from the source organization and may not represent a complete record from that organization. Blood Pressure kitIndications: Elevated BP without diagnosis of hypertension Use as directed to check blood pressure twice a day 1 kit 11/21/19 Active losartan (Cozaar) 25 MG tabletIndicatio ns:Essential hypertension Take 1 tablet (25 mg) by mouth Once per day. 30 tablet 11 5 3:37 PM EST 08/13/20 25 026 Active albuterol (Ventolin HFA) 108 (90 Base) MCG/ACT inhalerIndicati ons:Mild intermittent reactive airway disease without complication Inhale 2 puffs every 6 (six) hours if needed for wheezing. 18 g 5 3:37 PM EST 08/13/20 25 Active sodium chloride (Victoria Nasal [place]) 0.65 % nasal sprayIndication s:Viral syndrome 1-2 sprays on each nostril every 2-3 hours as needed for nasal congestion 30 mL 1 11/21/19 23 025 Discontinued(T herapy completed) acetaminophen (Tylenol Extra Strength) 500 MG tabletIndicatio ns:Viral syndrome Take 1 tablet (500 mg) by mouth every 6 (six) hours if needed for mild pain, fever, headaches or moderate pain. 30 tablet 11/21/19 23 025 Discontinued(T herapy completed) lisinopril (Prinivil) 20 MG tabletIndicatio ns:Essential hypertension Take 1 tablet (20 mg) by mouth in the morning. 90 tablet 1 01/19/20 23 025 Discontinued(S marcelino effects) sertraline (Zoloft) 50 MG tabletIndicatio ns:Anxiety Take 1 tablet (50 mg) by mouth at bedtime. 90 tablet 1 01/19/20 23 025 Discontinued(T herapy completed) hydrOXYzine pamoate (Vistaril) 50 MG capsule TAKE 1 CAPSULE BY MOUTH EVERY 6 HOURS NEEDED FOR ANXIETY 90 capsule 1 04/06/20 23 025 Discontinued(T herapy completed) predniSONE (Deltasone) 20 MG tabletIndicatio ns:Cough in adult patient,Cough variant asthma 40 mg once a day x 5 days 10 tablet 10/16/19 24 025 Discontinued(T herapy completed) Ventolin HFA 108 (90 Base) MCG/ACT inhalerIndicati ons:Mild intermittent reactive airway disease without complication INHALE 2 PUFFS BY MOUTH EVERY 6 HOURS NEEDED FOR WHEEZING 18 g 11/06/19 025 Discontinued(R eorder (will not trigger notification to Pharmacy)) Active Problems Problem Noted Date Diagnosed Date Acute abdominal pain 08/19/2025 Class 2 severe obesity due t o excess calories with serious comorbidity and body mass index (BMI) of 37.0 to 37.9 in adult 01/18/2023 Assessment & Plan (01/18/2023 1:47 PM EDT): Will send labs. Essential hypertension 11/29/2022 Assessment & Plan (01/18/2023 1:47 PM EDT): Patient with frequent elevated readings. Will increase lisinopril to 20mg. Will follow up within the month. Nexplanon in place 11/24/2022 Resolved Problems Problem Noted Date Diagnosed Date Resolved Date IUD (intrauterine device) in place 11/24/2022 11/24/2022 Encounters Date Type Department Care Team Description 08/19/2025 2:00 PM EST Office Visit [facility] [address] [place] [id number] Keisha Quintanilla MD Acute abdominal pain (Primary Dx) 08/19/2025 Orders Only [facility] External Provider, [facility] 08/19/2025 Travel 08/19/[address] [facility] [address] [place] [address] Karen Schmidt MD Nurse Triage 08/13/2025 3:30 PM EST Office Visit [facility] [address] [place] [address] Brandi Royal MD Essential hypertension (Primary Dx); Mild intermittent reactive airway disease without complication; Blurry vision, bilateral 08/13/2025 Travel 08/12/2025 Travel 08/03/[address] [facility] [address] [place] [address] Karen Schmidt MD Nurse Triage (/) 07/21/[address] [address] Karen Schmidt MD Nurse Triage from Last 3 Months Immunizations Immunization Administration Dates Next Due Influenza Injectable Quadriv alant Preservative Free IIV4 MDCK 10/23/2017 Influenza injectable quadrivalent preservative f ree 07/03/2021,06/14/2020 Influenza, seasonal, injectable, preservative fr ee 07/04/2013 Pneumococcal Polysaccharide PPSV23 01/16/2017 Td (adult), unspecified 02/23/2004 Tdap 08/01/2013 Social History Tobacco Use Types Packs/Day Years Used Date Smoking Tobacco: Never Passive Smoke Exposure: Never Smokeless Tobacco: Never Tobacco Cessation:Counseling Given: Not Answered Alcohol Use Standard Drinks/Week Comments Never 0 [...] Orientation Straight 11/21/2022 1: 38 PM EST Last Filed Vital Signs Vital Sign Reading [...] Mass Index 34.5 08/19/2025 2:17 PM EST Plan of Treatment Upcoming Encounters Date Type Department Care Team (Late st Contact Info) Description 09/21/2025 9:15 AM EST Office Visit [facility]EDS [address] [place] [address] Karen Schmidt MD [address] [place] [address] Health Maintenance Due Date Last Done Comments CT Colonography 1978 Colonoscopy 1978 Colorectal Cancer Screening 1978 FIT DNA/Cologuard 1978 FIT 1978 FOBT 1978 HIV Screening 1978 Lipid Panel 1978 SDOH Screening 1978 Sigmoidoscopy 1978 Alcohol/Substance Use Screening 1990 Family Planning (PISQ) 1993 Hepatitis C Screening 1996 Hepatitis B Vaccines (1 of 3 - 19+ 3-dose series) 1997 Pap Smear 1999 Cervical Cancer Screening 2008 HPV/Cotest 2008 Pneumococcal Vaccine: Pediatrics (0 to 5 Years) and At-Risk Patients (6 to 49) Years (2 of 2 - PCV) 01/16/2018 01/16/2017 Mammogram 2018 Depression Monitoring 06/27/2023 12/25/2022, 023 DTaP/Tdap/Td Vaccines (2 - Td or Tdap) 08/01/2023 08/01/2013, 02/23/2004, 02/23/2004 COVID-19 Vaccine ( season) 2025 09/28/2021, 01/12/2021, 12/22/2020 Influenza Vaccine (#1) 2025 , 06/27/2021, 06/14/2020, Additional history exists Disability Screening 08/12/2026 08/12/2025 Tobacco Screening 08/13/2026 08/13/2025 Zoster Vaccines (1 of 2) 2028 RSV Patients and Patients Aged 60 years or older (1 - 1-dose 75+ series) 2053 HIB Vaccines Aged Out No longer eligi ble based on patient's age to complete this topic HPV Vaccines Aged Out No longer eligi ble based on patient's age to complete this topic Hepatitis A Vaccines Aged Out No long er eligible based on patient's age to complete this topic IPV Vaccines Aged Out No longer eligi ble based on patient's age to complete this topic Meningococcal B Vaccine Aged Out No l onger eligible based on patient's age to complete this topic Meningococcal Vaccine Aged Out No mahendra meng eligible based on patient's age to complete this topic RSV under 20 months Aged Out No longe r eligible based on patient's age to complete this topic Rotavirus Vaccines Aged Out No longer eligible based on patient's age to complete this topic Procedures Procedure Name Priority Date/Time Associated Diagnosis Comments CT ABDOMEN PELVIS W CONTRAST Routine 08/19/2025 7:07 PM EST from Last 3 Months Results * CT Abdomen Pelvis w/ Contrast (08/19/2025 7:07 PM EST) Anatomical Region Laterality Modality Body, Pelvis, Abdomen Computed T omography 08/19/2025 7:07 PM EST Narrative 08/19/2025 7:09 PM EST [address] [address] [address] Scan Report Signed Patient: Negar Ramos MR#: [id number] 0 : 1980 Acct:[id number] Age/Sex: 45 / F ADM Date: 08/19/25 Loc: HO.ED Attending Dr: Ordering Physician: Juan Clark MD Date of Service: 08/19/25 Procedure(s): CT abdomen pelvis w IV con Accession Number(s): [id number] cc: Juan Clark MD; Karen Schmidt MD Report Number: [id number]: Total DLP = 942.00 mGy-cm Reason for Exam: LLQ tender, CLINICAL HISTORY: LLQ tender, CT abdomen and pelvis with contrast Comparison: None provided Findings: The lung bases are clear. Elevated right hemidiaphragm. The gallbladder is unremarkable. No biliary ductal dilatation. The liver, spleen, pancreas, adrenal glands and kidneys are unremarkable. No ureteral stones and no hydronephrosis or hydroureter. No perinephric stranding. No bowel obstruction, pneumoperitoneum, or pneumatosis. Colonic diverticulosis with focal significant wall thickening and significant adjacent inflammatory stranding involving sigmoid colon proximally, consistent with acute diverticulitis. No perforation and no evidence of an abscess. No free fluid. Pelvic contents unremarkable. Normal appendix. Abdominal aorta normal in size. No acute fracture. IMPRESSION: 1. Acute diverticulitis involving sigmoid colon with no evidence of perforation or an abscess. After resolution of acute phase follow-up colonoscopies recommended to ensure no underlying mass. This document has been electronically signed by: Jacquelin Cherry MD on 08/19/2025 19:07:39 Dictated By: Jacquelin Cherry MD Signed By: <Electronically signed by Jacquelin Cherry MD in OV> 08/19/251907 DD/ 06 TD/TT: 08/19/251906 Planner Scheduler: Procedure Note Donotuseinterpreter, Image - 08/19/[address] [place] [address] [address] Scan Report Signed Patient: Negar Ramos#: [id number] 0 : 1980Acct:[id number] Age/Sex: 45 / FADM Date: 08/19/25 Loc: HO.ED Attending Dr: Ordering Physician: Juan Clark MD Date of Service: 08/19/25 Procedure(s): CT abdomen pelvis w IV con Accession Number(s): [id number] cc: Juan Clark MD; Karen Schmidt MD Report Number: [id number]: Total DLP = 942.00 mGy-cm Reason for Exam: LLQ tender, CLINICAL HISTORY: LLQ tender, CT abdomen and pelvis with contrast Comparison: None provided Findings: The lung bases are clear. Elevated right hemidiaphragm. The gallbladder is unremarkable. No biliary ductal dilatation. The liver, spleen, pancreas, adrenal glands and kidneys are unremarkable. No ureteral stones and no hydronephrosis or hydroureter. No perinephric stranding. No bowel obstruction, pneumoperitoneum, or pneumatosis. Colonic diverticulosis with focal significant wall thickening and significant adjacent inflammatory stranding involving sigmoid colon proximally, consistent with acute diverticulitis. No perforation and no evidence of an abscess. No free fluid. Pelvic contents unremarkable. Normal appendix. Abdominal aorta normal in size. No acute fracture. IMPRESSION: 1. Acute diverticulitis involving sigmoid colon with no evidence of perforation or an abscess. After resolution of acute phase follow-up colonoscopies recommended to ensure no underlying mass. This document has been electronically signed by: Jacquelin Cherry MD on 08/19/2025 19:07:39 Dictated By: Jacquelin Cherry MD Signed By: <Electronically signed by Jacquelin Cherry MD in OV> 08/19/251907 DD/ 06 TD/TT: 08/19/251906 Planner Scheduler: [facility] External Provider IMG CT PROCEDURES Final Result from Last 3 Months Insurance [facility] 3 Care Teams Imaging Account Manager Relationship Specialty Start Date End Date Karen Schmidt MD [address] [place] [address] PCP - General Family Medicine 01/18/23
--- OUTSIDE RECORDS SUMMARY | 2025-08-20 05:09 | XMS_ITS | Encounter Summary ---
Author Organization [employer] Address [address] [place] [address] 7 [place] [address] Care Team Providers Care Delivery Specialist Name Role Phone Karen Schmidt MD Primary Care Provider [phone] Encounter Details Date Type Department Care Team ([facility] Contact Info) Description 08/19/2025 Orders Only [facility] External Provider, [facility] Social History Tobacco Use Types Packs/Day Years [...] Encounters Date Type Department Care Team (Late Contact Info) Description 09/21/2025 9:15 AM EST Office Visit [facility] [address] [place] [address] Karen Schmidt MD [address] [place] [address] documented as of this encounter Procedures Procedure Name Priority Date/Time Associated Diagnosis Comments CT ABDOMEN PELVIS W CONTRAST Routine 08/19/2025 7:07 PM EST documented in this encounter Results * CT Abdomen Pelvis w/ Contrast (08/19/2025 7:07 PM EST) Anatomical Region Laterality Modality Body, Pelvis, Abdomen Computed T omography 08/19/2025 7:07 PM EST Narrative 08/19/2025 7:09 PM EST [address] [address] [address] Scan Report Signed Patient: Negar Ramos MR#: [id number] 0 : 1980 Acct:[id number] Age/Sex: 45 / F ADM Date: 08/19/25 Loc: .ED Attending Dr: Ordering Physician: Juan Clark MD Date of Service: 08/19/25 Procedure(s): CT abdomen pelvis w IV con Accession Number(s): [id number] cc: Juan Clark MD; Karen Schmidt MD Report Number: [id number]: Total DLP = 942.00 mGy-cm Reason for [...] in OV> 08/19/251907 DD/ 06 TD/TT: 08/19/251906 Forensics Analyst: Procedure Note Donotuseinterpreter, Image - 08/19/[address] [place] [address] [address] Scan Report Signed Patient: Nikhil Ramos#: [id number] 0 : 1980Acct:[id number] Age/Sex: 45 / FADM Date: 08/19/25 Loc: HO.ED Attending Dr: Ordering Physician: Juan Clark MD Date of Service: 08/19/25 Procedure(s): CT abdomen pelvis w IV con Accession Number(s): [id number] cc: Juan Clark MD; Karen Schmidt MD Report Number: [id number]: Total DLP = 942.00 mGy-cm Reason for [...] in OV> 08/19/251907 DD/ 06 TD/TT: 08/19/251906 Forensics Analyst: [facility] External Provider IMG CT PROCEDURES Final Result documented in this encounter Visit Diagnoses Not on filedocumented in this encounter Additional Health Concerns Assessment Noted Time PHQ-9 Depression Total Score: 9 12/26/19 23 2:06 PM EDT documented as of this encounter Care Teams Delivery Specialist Relationship Specialty Start Date End Date Karen Schmidt MD [address] [place] [address] PCP - General Family Medicine 01/18/23 documented as of this encounter
== END 2025-08-19 19:41 | disposition home or self-care (01) ==
PROVIDERS: Physician Assistant; Emergency Provider Emergency Medicine; PCP Family Medicine
DX: K57.32 Diverticulitis of large intestine without perforation or abscess without bleeding (principal); R10.32 Left lower quadrant pain; I10 Essential (primary) hypertension
CPT/HCPCS: 36415; 74177; 80048; 80076; 81001; 83605; 83690; 83735; 84702; 85025; 87040; 87086; 96365; 99285; J0696; Q9967

== ENCOUNTER → 2025-08-19 18:01 | Outpatient (BNV) | payer OTHER, SELFPAY | PROVIDERS: Emergency Provider Emergency Medicine; PCP Family Medicine; Visit Provider Specialist | DX: K57.30 Diverticulosis of large intestine without perforation or abscess without bleeding (principal) | CPT/HCPCS: 74177 ==